=== PATIENT | male | born 2000 | race Caucasian/White ===

== ENCOUNTER 2024-07-16 09:13 | Outpatient (CLI) | payer OTHER ==
[2024-07-16] MEDS ORDERED: Iopamidol 300 61% 100 ML VIAL FS ONE (11:14)
== END 2024-07-16 09:14 | disposition home or self-care (01) ==
LOC: CSHCT 09:13
PROVIDERS: ATTEND Internal Medicine Hematology & Oncology
DX: C49.A0 Gastrointestinal stromal tumor, unspecified site (principal); R59.0 Localized enlarged lymph nodes; Z98.890 Other specified postprocedural states; K76.9 Liver disease, unspecified; K66.9 Disorder of peritoneum, unspecified
CPT/HCPCS: 71260; 74177

== ENCOUNTER 2025-07-29 09:08 | Outpatient (CLI) | payer OTHER ==
[2025-07-29] MEDS ORDERED: Iopamidol 300 61% 100 ML VIAL FS ONE (11:06)
== END 2025-07-29 09:09 | disposition home or self-care (01) ==
LOC: CSHCT 09:08
PROVIDERS: ATTEND Internal Medicine Hematology & Oncology
DX: C49.A3 Gastrointestinal stromal tumor of small intestine (principal); C78.5 Secondary malignant neoplasm of large intestine and rectum
CPT/HCPCS: 71260; 74177; Q9967